=== PATIENT | male | born 1940 | race Caucasian/White ===

== ENCOUNTER → 2021-07-20 | Day surgery (SDC) | payer OTHER ==
[~2021-07-20] VITALS: Ht 180.3 cm; Wt 76.2 kg
[~2021-07-20] MED LIST: ALPHAGAN 020 DROPS/M OD; DEPAKOTE125 MG PO; DORZOLAMIDE-TIM10 ML OD; FEOSOL325 MG PO; FLOMAX0.4 MG PO; MUCINEX 600MG600 MG PO; PERIOGARD473 ML PO; RHOPRESSA2.5 ML OD; SODIUM CHLORIDE1 GM PO; XALATAN2.5 ML OD
[2021-07-20 12:17] LABS: BASOPHIL 1.2 % (0-2); EOSINOPHIL 6.7 % (0-7); HCT 31.2 % (42.0-52.0); HGB 10.3 g/dl (13.2-18.0); LYMPHOCYTE 24.1 % (15-48); MCH 30.9 pg (25.0-31.0); MCV 93.7 fL (78.0-100.0); MONOCYTE 10.2 % (0-12); MPV 9.2 fL (6.0-9.5); NEUTROPHIL 57.4 % (41-80); NRBC 0; PLT 223 K/uL (150-400); RBC 3.33 M/uL (4.70-6.00); RDW 12.9 % (11.5-14.0); WBC 7.4 K/uL (4.0-10.5)
[2021-07-20 12:36] LABS: INR 1.17 (0.9-1.2); PROTHROMBIN TIME 14.3 SECONDS (11.8-13.4)
[2021-07-20 12:37] LABS: PTT 54.7 SECONDS (24.4-34.7)
[2021-07-20 12:44] LABS: ALBUMIN 3.3 g/dL (3.4-5.0); BILIRUBIN - TOTAL 0.3 mg/dL (0.2-1.0); BUN/CREAT RATIO (CALC) 21.7 RATIO; CREATININE 1.15 mg/dL (0.67-1.17); GLOBULIN (CALCULATION) 3.7 g/dL; POTASSIUM 4.6 mmol/L (3.5-5.1)
== END | disposition home or self-care (01) ==
LOC: FAS 10:11
PROVIDERS: Oral & Maxillofacial Surgery
DX: K02.9 Dental caries, unspecified (principal); K04.7 Periapical abscess without sinus; F03.90 Unspecified dementia, unspecified severity, without behavioral disturbance, psychotic disturbance, mood disturbance, and anxiety; G40.909 Epilepsy, unspecified, not intractable, without status epilepticus; E11.9 Type 2 diabetes mellitus without complications; H54.7 Unspecified visual loss
CPT/HCPCS: 36415; 71045; 80053; 85025; 85610; 85730; 93005; J1170; J2250; J2370; J2405; J2704; J2710; J3010; J7120